=== PATIENT | female | born 1940 | race Caucasian/White ===

== ENCOUNTER 2017-12-02 18:28 | Emergency (ER) | payer OTHER | END 2017-12-02 23:24 | disposition home or self-care (01) | LOC: D.ER 18:28 | DX: S43.004A Unspecified dislocation of right shoulder joint, initial encounter (principal); W01.0XXA Fall on same level from slipping, tripping and stumbling without subsequent striking against object, initial encounter; Y93.89 Activity, other specified; Y92.019 Unspecified place in single-family (private) house as the place of occurrence of the external cause; S80.01XA Contusion of right knee, initial encounter; G35 Multiple sclerosis ==

== ENCOUNTER → 2017-12-10 09:42 | Outpatient (CLI) | payer OTHER | END | disposition home or self-care (01) | LOC: D.MRI 09:42 | DX: S43.304A Dislocation of unspecified parts of right shoulder girdle, initial encounter (principal); X58.XXXA Exposure to other specified factors, initial encounter; Y93.89 Activity, other specified; Y92.89 Other specified places as the place of occurrence of the external cause; M25.511 Pain in right shoulder ==

== ENCOUNTER 2020-04-08 16:56 | Emergency (ER) | payer OTHER ==
[~2020-04-08] VITALS: Ht 175.3 cm; Wt 74.1 kg
[2020-04-08 17:07] VITALS: Ht 175.3 cm; Wt 74.1 kg
[2020-04-08] MEDS ORDERED: XANAX0.25 MG (17:09)
[2020-04-08 17:35] LABS: BASOPHILS 0.9 % (0-2); EOSINOPHILS 1.7 % (0-7); HEMATOCRIT 39.8 % (36.0-48.0); HEMOGLOBIN 13.1 g/dL (12-16); IMMATURE GRANULOCYTES 0.2 % (0-5); LYMPHOCYTES 31.5 % (15-50); MCH 30.5 pg (26.0-34.0); MCHC 32.9 g/dL (31.0-37.0); MCV 92.6 fL (80.0-100.0); MEAN PLATELET VOLUME 8.6 fL (7.4-10.4); MONOCYTES 10.5 % (2-11); NEUTROPHILS 55.2 % (40-80); PLATELET COUNT 305 10x3/uL (130-400); RDW 13.2 % (11.5-14.5); WBC 6.6 10x3/uL (4.8-10.8)
[2020-04-08 17:42] LABS: ANION GAP 9.6 mmol/L (8-16); APTT 27.8 SECONDS (22.8-39.4); CALCIUM 8.7 mg/dL (8.5-10.1); CARBON DIOXIDE 28.3 mmol/L (21.0-32.0); CREATININE - SERUM 0.9 mg/dL (0.6-1.3); INR 1.05 (0.85-1.17); POTASSIUM - SERUM 3.9 mmol/L (3.5-5.1); PROTIME 13.6 SECONDS (11.6-15.0)
[2020-04-08 17:49] LABS: ALBUMIN 3.6 g/dL (3.4-5.0); BILIRUBIN - TOTAL 0.21 mg/dL (0.2-1.3); PROTEIN - SERUM 6.6 g/dL (6.4-8.2)
[2020-04-08] MEDS ORDERED: METHOCARBAMOL500 MG PO (20:04)
[2020-04-08] MEDS ORDERED: KEFLEX500 MG PO (20:04)
[2020-04-08 20:28] VITALS: BP 136/106
== END 2020-04-08 20:28 | disposition home or self-care (01) ==
LOC: D.ER 16:56
PROVIDERS: Family Medicine
DX: S51.812A Laceration without foreign body of left forearm, initial encounter (principal); W28.XXXA Contact with powered lawn mower, initial encounter; Y93.H2 Activity, gardening and landscaping; Y92.009 Unspecified place in unspecified non-institutional (private) residence as the place of occurrence of the external cause; M79.18 Myalgia, other site; S81.811A Laceration without foreign body, right lower leg, initial encounter; M25.512 Pain in left shoulder; M79.622 Pain in left upper arm; M79.604 Pain in right leg; T14.8XXA Other injury of unspecified body region, initial encounter